=== PATIENT | female | born 2000 | race Caucasian/White ===

== ENCOUNTER 2022-04-30 08:23 | Emergency (ER) | payer OTHER ==
[2022-04-30 08:43] VITALS: BP 105/69; PULSE 81; RESP 18; TEMP 98.1; BMI 20.7
== END 2022-04-30 10:38 | disposition home or self-care (01) ==
LOC: JER 08:23
DX: K09.9 Cyst of oral region, unspecified (principal)
CPT/HCPCS: 99282-25

== ENCOUNTER → 2022-06-25 | Emergency (ER) | payer OTHER ==
[2022-06-25 17:17] VITALS: BP 112/77; PULSE 118; RESP 18; TEMP 98.1; BMI 21.4
== END | disposition left against medical advice (07) ==
LOC: JERFT 17:08 → JER 17:08
DX: R11.2 Nausea with vomiting, unspecified (principal); R19.7 Diarrhea, unspecified
CPT/HCPCS: 99281-25